=== PATIENT | male | born 1940 | race Caucasian/White ===

== ENCOUNTER 2018-04-20 11:11 | Inpatient (IN) ==
[2018-04-20] MEDS ORDERED: IOPAMIDOL 100 ML BOTTLE IV ONE (11:12)
[2018-04-20] MEDS ORDERED: cefTRIAXone 1 GM VIAL IV ONE (11:22)
[2018-04-20] MEDS ORDERED: VANCOMYCIN PER PHARMACY IV ONE ×2 (12:02→13:41)
[2018-04-20 12:24] LABS: Basophils # (Auto) 0 K/mcL (0.0-0.3); Basophils % (Auto) 0.3 % (0.0-2.0); Eosinophils # (Auto) 0 K/mcL (0.0-0.7); Eosinophils % (Auto) 0.7 % (0.0-7.0); Granulocytes % (Auto) 76.3 % (38.0-78.0); Lymphocytes % (Auto) 14.9 % (15.5-49.0); Mean Cell Volume 93.7 fL (80.0-100.0); Mean Corpuscular HGB Conc 33.5 g/dL (31.0-36.0); Monocytes # (Auto) 0.5 K/mcL (0.1-0.9); Monocytes % (Auto) 7.8 % (1.0-12.0); Platelet Count 339 K/mcL (140-440); RBC 4.99 M/mcL (4.50-5.90); Red Cell Distribution Width 12.4 % (11.5-14.5)
[2018-04-20 12:46] LABS: ALT/SGPT 36 U/l (0-40); Albumin/Globulin Ratio 0.6 (1.0-2.3); Alkaline Phosphatase 301 U/L (39-117); Blood Urea Nitrogen 17 mg/dl (8-23)
[2018-04-20] MEDS ORDERED: PIPERACILLIN SODIUM/TAZOBACTAM 3.375 GM in DEXTROSE 5% IN WATER 50 ML IV ONE (13:53)
--- NOTE | 2018-04-20 13:57 | Emergency Department Note ---
Lower Extremity Injury HPI - General Chief Complaint: Extremity Injury, Lower Stated Complaint: right foot problem Time Seen by Provider: 04/20/18 11:19 Source: patient Limitations: no limitations - History of Present Illness HPI Narrative: 78-year-old male presents with a cellulitis to the right lower extremity. He is a type 2 diabetes. No open wound but states he started out with some redness to the right ankle and has progressively gotten worse. He has been going to [place] outpatient IV antibiotic therapy. He is a patient of [facility] and sees Aden Cassidy. States he had x-rays done this morning. They have been continuing to monitor as it is getting worse instead of better. He has been receiving IV Rocephin 2 g daily for the last 5 days it appears. States he was sent here to see Dr. Ibarra with infectious disease due to worsening. Positive chills the last few days. Unknown fever. No nausea, vomiting, or diarrhea. He did have a venous duplex of the right lower extremity on the which was negative. Associated symptoms: Reports: swelling (Swelling and redness to the right lower extremity). Denies: numbness, tingling Other symptoms: none - Related Data Home Medications Medication Instructions Recorded Confirmed Aspirin [Hu Chewable Aspirin] 81 mg PO DAILY 04/20/18 04/20/18 Cephalexin [Keflex] 500 mg PO TID 04/20/18 04/20/18 Furosemide [Lasix] 20 mg PO DAILY 04/20/18 04/20/18 HYDROcodone/ACETAMINOPHEN [Xodol 5 mg PO 3-4XD 04/20/18 04/20/18 10-300 Tablet] Insulin Glargine, Human [Lantus] 85 units SQ HS 04/20/18 04/20/18 Lantus 95 units SQ DAILY 04/20/18 04/20/18 Losartan [Cozaar] 25 mg PO ONCE 04/20/18 04/20/18 Naproxen [Naprosyn] 500 mg PO BIDCC 04/20/18 04/20/18 Omeprazole [PriLOSEC] 20 mg PO ACB 04/20/18 04/20/18 Onglyza 5 mg DAILY 04/20/18 04/20/18 Potassium Chlorate 10 meq PO DAILY 04/20/18 04/20/18 Rosuvastatin [Crestor] 10 mg PO HS 04/20/18 04/20/18 Sulfamethoxazole/Trimethoprim 1 each PO BIDP 04/20/18 04/20/18 [Sulfamethoxazole-Tmp Ss Tablet] metFORMIN [Glucophage] 1,000 mg PO BIDCC 04/20/18 04/20/18 Allergies Allergy/AdvReac Type Severity Reaction Status Date / Time No Known Drug Allergies Allergy Verified 04/20/18 11:14 Review of Systems All systems ED: reviewed and negative except as stated. Past Medical History - Past Medical History Medical history: Reports: DM, other (Diabetic neuropathy, clubfoot right side, cellulitis, depression, chronic colitis, chronic low back pain, pedal edema, type 2 diabetes uncontrolled, noncompliance with medication, UTI) Surgical history ED: Reports: orthopedic, other (Multiple surgeries to the right foot and left ankle) - Social History smoking status: Never smoker Alcohol use: Reports: None Drug use: Reports: none Physical Exam Limitations: no limitations General appearance: alert, in no apparent distress Head: atraumatic, normocephalic, normal inspection Eye: Present: normal appearance. Absent: conjunctival injection ENT: mucous membranes moist Chest: Present: symmetric chest wall rise Respiratory: Present: normal lung sounds bilaterally. Absent: respiratory distress, rales/crackles, accessory muscle use Cardiovascular: Present: regular rate, normal heart sounds Extremities: Present: normal capillary refill. Absent: normal inspection (Right foot and ankle with diffuse edema, redness, and warmth. The skin is intact and there is no induration or drainage. No wound or site of drainage at all. Diffuse tenderness throughout. Redness extends up to mid calf. There is no posterior calf pain.) Neurological: Present: alert, oriented X3 Psychiatric: Present: normal affect, normal mood Skin: Present: warm, dry, intact, normal color, erythema (Please see extremity assessment) Course Course Narrative: Patient has been receiving 2 g IV Rocephin daily outpatient antibiotic therapy and has failed outpatient treatment. At 1400 I did speak with Dr. Ibarra who would suggest that we admit this patient through the hospitalist, he would like him on IV Vanco and IV Zosyn. Also concerned about further infection with uncontrolled diabetes. @ 1405 I did speak with the hospitalist, Dr. Best who will consult with Dr. Ibarra and see the patient to determine plan of care. @1450 Dr. Best agrees to admit pt. Vital Signs Temperature 97.0 F 04/20/18 11:12 Pulse Rate 87 04/20/18 11:12 Respiratory Rate 18 04/20/18 11:12 Blood Pressure 123/70 04/20/18 11:12 Pulse Oximetry (%) 99 04/20/18 11:12 Temperature 97.0 F 04/20/18 11:12 Pulse Rate 76 04/20/18 14:21 Respiratory Rate 18 04/20/18 14:21 Blood Pressure 118/68 04/20/18 14:21 Pulse Oximetry (%) 98 04/20/18 14:21 Extremity Injury, Lower - Lab Data Result diagrams: 04/20/18 11:37 04/20/18 11:37 Lab Results 04/20/18 04/20/18 04/20/18 Range/Units 11:37 11:37 11:37 WBC 6.7 (4.5-11.0) K/mcL RBC 4.99 (4.50-5.90) M/mcL Hgb 15.6 (13.5-16.5) g/dL Hct 46.7 (41.0-55.0) % MCV 93.7 (80.0-100.0) fL MCH 31.4 (26.0-34.0) pg MCHC 33.5 (31.0-36.0) g/dL RDW 12.4 (11.5-14.5) % Plt Count 339 (140-440) K/mcL MPV 8.4 (7.4-10.4) fL Gran % 76.3 (38.0-78.0) % Lymph % (Auto) 14.9 L (15.5-49.0) % [place] % (Auto) 7.8 (1.0-12.0) % Eos % (Auto) 0.7 (0.0-7.0) % Baso % (Auto) 0.3 (0.0-2.0) % Gran # 5.1 (1.8-8.0) K/mcL Lymph # (Auto) 1.0 L (1.5-4.8) K/mcL [place] # (Auto) 0.5 (0.1-0.9) K/mcL Eos # (Auto) 0 (0.0-0.7) K/mcL Baso # (Auto) 0 (0.0-0.3) K/mcL VBG Lactic Acid 2.6 H (0.5-2.0) mmol/L Sodium 133 (133-145) mmol/L Potassium 3.5 (3.3-5.1) mmol/L Chloride 93 L (96-108) mmol/L Carbon Dioxide 24 (22-30) mmol/L Anion Gap 16.0 (8-16) BUN 17 (8-23) mg/dl Creatinine 1.0 (0.7-1.2) mg/dl GFR Calculation 73 Glucose 353 H (70-105) mg/dL Calcium 8.9 (8.6-10.4) mg/dl Total Bilirubin 1.3 H (0.0-1.0) mg/dL AST 35 (0-37) U/l ALT 36 (0-40) U/l Alkaline Phosphatase 301 H (39-117) U/L Total Protein 7.9 (5.9-8.4) gm/dL Albumin 3.0 L (3.2-5.2) gm/dL Globulin 4.9 H (2.2-3.7) gm/dL Albumin/Globulin Ratio 0.6 L (1.0-2.3) Disposition Pt seen by SIMULATION TECH/PA only: No Clinical Impression: Cellulitis of lower extremity, Failure of outpatient treatment, Diabetes Disposition: Xfer As Inpt ([facility]) Condition: Fair Referrals: Aden Cassidy ARNP [Primary Care Provider] - Time of Disposition: 14:54
[2018-04-20] MEDS ORDERED: VANCOMYCIN 1,500 MG in 0.9 % SODIUM CHLORIDE 500 ML IV SCH (14:30)
[2018-04-20] MEDS ORDERED: DEXTROSE 50% 50 ML VIAL IV PRN ×2 (14:51→17:02)
[2018-04-20] MEDS ORDERED: DEXTROSE 31 GM ORAL.SUSP PO PRN ×2 (14:51→17:02)
--- NOTE | 2018-04-20 14:59 | Emergency Department Note ---
ED Note Addendum Note Addendum: I examined this patient and agree with the mid-level provider that he needs to be admitted for cellulitis.
--- NOTE | 2018-04-20 15:02 | Cat Scan Report ---
CLINICAL INFORMATION: severe cellulitis, edema COMPARISON: None. TECHNIQUE: 0.625 mm helical slices were obtained from the distal one third of the tibia and fibula through the foot and ankle. Following reconstruction, 1.25 mm axial, sagittal coronal reformatted images were processed and reviewed in bone and soft tissue windows FINDINGS: Bone windows show moderate/severe diffuse osteoporosis particularly in the periarticular region. There is no specific evidence for osteomyelitis. Severe hammertoe deformities first and fifth digit is noted. There is moderate moderate degenerative change in all interphalangeal joints. Diffuse cellulitis and fasciitis present throughout the foot and ankle. There is no evidence of discrete soft tissue abscess. There is extremely heavy ossification of the proximal Achilles tendon - likely stigmata of inflammation or old trauma. Other tendon sheaths are grossly normal IMPRESSION: 1. No CT evidence of osteomyelitis 2. Moderate diffuse cellulitis/fasciitis. No evidence of soft tissue abscess 3. Moderate/severe diffuse osteoporosis. 4. Hammertoe deformities first through fifth digits, pes cavus and metatarsus adductus deformities. 5. Heavy ossification of the proximal Achilles tendon likely stigmata of remote trauma or inflammation. Interpreted and Authenticated by: Primitivo Roman 04/20/18
--- NOTE | 2018-04-20 15:20 | Internal Med History&Physical ---
Medical - H&P: HPI Patient information: Note initiated : 04/20/18 at 3:16 pm Service Date, if different from initiated Date: [] Patient: Marvin Reddy a 78 y/o M admitted on for right foot problem. Chief Complaint: [] History of present illness: Mr. Reddy is a 78 year old M with history of uncontrolled diabetes presents to the emergency room for evaluation of right foot pain. The foot pain has been going on since last Thursday, started out of nowhere no trauma associated with redness and increased warmth in the right lower extremity. The patient was finding it difficult to ambulate and therefore he presented to [facility] emergency room for further evaluation I believe on 15 April. The pat ient was evaluated and started on antibiotics. He had received a dose of Rocephin and then put on p.o. Keflex. On subsequent visits on the it was noted that although the edema was better the cellulitis had not improved, Bactrim was added at that time. For some reason the patient presented to the hospital here today I believe for evaluation by infectious disease. The patient's condition has progressively gotten worse but it is not improved patient is unable to ambulate according to the daughters. Patient admits to having some chills but otherwise no other complaints. He denies any chest pain shortness of breath abdominal pain nausea vomiting no GI or complaints no headache changes in vision no difficulty in swallowing. He denies absolutely any trauma to the region. In the emergency room patient is afebrile temperature 97 heart rate 87 blood pressure 123/70 respirations 18 saturating 99% on room air labs show WBC count of 9.8, was 15,000 on 15 April, hemoglobin 15 platelets 263 lactic acid 2.7 sodium 133 potassium 3.5 bicarbonate 24 creatinine normal glucose 353 ABG shows pH of 7.46 PCO2 34 PO2 [address] scan done shows severe cellulitis and fasciitis no osteomyelitis The patient is being admitted to the hospital for further management All systems: reviewed and no additional remarkable complaints except as stated (As per HPI rest negative) Medical - H&P: PMH Medical history: Diabetes uncontrolled Diabetic neuropathy Hypertension Hyperlipidemia Peripheral vascular disease Surgical history: Clubfeet surgery Cholecystectomy Left knee replacement Pertinent family history: Mother from breast cancer Father from alcoholic cirrhosis Social history: Patient denies smoking denies ever smoking History of alcohol use quit 20 years ago Weekend use of marijuana Medical - H&P: Meds Home Medications Medication Instructions Recorded Confirmed Type Aspirin [Hu Chewable Aspirin] 81 mg PO DAILY 04/20/18 04/20/18 History Cephalexin [Keflex] 500 mg PO TID 04/20/18 04/20/18 History Furosemide [Lasix] 20 mg PO DAILY 04/20/18 04/20/18 History HYDROcodone/ACETAMINOPHEN [Xodol 5 mg PO 3-4XD 04/20/18 04/20/18 History 10-300 Tablet] Insulin Glargine, Human [Lantus] 85 units SQ HS 04/20/18 04/20/18 History Lantus 95 units SQ DAILY 04/20/18 04/20/18 History Losartan [Cozaar] 25 mg PO ONCE 04/20/18 04/20/18 History Naproxen [Naprosyn] 500 mg PO BIDCC 04/20/18 04/20/18 History Omeprazole [PriLOSEC] 20 mg PO ACB 04/20/18 04/20/18 History Onglyza 5 mg DAILY 04/20/18 04/20/18 History Potassium Chlorate 10 meq PO DAILY 04/20/18 04/20/18 History Rosuvastatin [Crestor] 10 mg PO HS 04/20/18 04/20/18 History Sulfamethoxazole/Trimethoprim 1 each PO BIDP 04/20/18 04/20/18 History [Sulfamethoxazole-Tmp Ss Tablet] metFORMIN [Glucophage] 1,000 mg PO BIDCC 04/20/18 04/20/18 History Allergies Allergy/AdvReac Type Severity Reaction Status Date / Time No Known Drug Allergies Allergy Verified 04/20/18 11:14 Medical - H&P: Exam - Constitutional Vitals: Temp Pulse Resp BP Pulse Ox 97.0 F 76 18 118/68 98 04/20/18 11:12 04/20/18 14:21 04/20/18 14:21 04/20/18 14:21 04/20/18 14:21 Exam: GENERAL: The patient is a well-developed, well-nourished in no apparent di stress. Is alert and oriented x3. VITAL SIGNS: Reviewed and as noted elsewhere. HEENT: Head is normocephalic and atraumatic. Extraocular muscles are intact. Pupils are equal, round, and reactive to light. Nares appeared normal. Mouth appears any without lesions. Mucous membranes are moist. NECK: Normal to inspection, Supple, No lymphadenopathy or thyromegaly. LUNGS: Air entry equal on both sides, no wheezing, crackles or rhonchi noted. No accessory muscles of respiration HEART: Regular rate and rhythm normal, S1 and S2 heard, no Gallop, S3 or Rub Noted, No Gross murmur heard. ABDOMEN: Soft, nontender, and nondistended. Positive bowel sounds. No hepatosplenomegaly was noted. EXTREMITIES: Right lower extremity has erythema extending from the ankle to the knee. Warm to touch tender to palpate around the ankle region as well as the lower part of the leg. Pulses are diminished in both legs. No crepitus noted NEUROLOGIC: Cranial nerves II through XII are grossly intact. Motor and Sensory System Grossly Intact PSYCHIATRIC: Normal affect, Normal Mood. Appropriate Behavior. SKIN: No ulceration or wounds noted, No jaundice, No rash noted. Medical - H&P: Reslt - Labs CBC & Chem 7: 04/20/18 11:37 04/20/18 11:37 Labs: Short CBC 04/20/18 Range/Units 11:37 WBC 6.7 (4.5-11.0) K/mcL Hgb 15.6 (13.5-16.5) g/dL Hct 46.7 (41.0-55.0) % Plt Count 339 (140-440) K/mcL BMP 04/20/18 11:37 Sodium 133 Potassium 3.5 Chloride 93 L Carbon Dioxide 24 BUN 17 Creatinine 1.0 Glucose 353 H Calcium 8.9 Liver Function 04/20/18 Range/Units 11:37 Total Bilirubin 1.3 H (0.0-1.0) mg/dL AST 35 (0-37) U/l ALT 36 (0-40) U/l Alkaline Phosphatase 301 H (39-117) U/L Albumin 3.0 L (3.2-5.2) gm/dL Medical - H&P: A/P - Narrative A/P Narrative: A/P Cellulitis/Fascitis- Failed outpatient treatment, start the patient on IV vancomycin and Zosyn for now. Given fascitis interpretation on the CT scan we will consult general surgery. Clinically patient is hemodynamically stable. Lactic acidosis-could be from cellulitis but patient is also on metformin. IV fluids for now monitor. Diabetes-uncontrolled diabetes looking at his labs in the past sugar has been very high, Lantus and sliding scale insulin for glucose control Hypertension/ hyperlipidemia: Hold blood pressure medications for now, continue statin Peripheral vascular disease-continue aspirin Diabetic neuropathy-continue Neurontin DVT prophylaxis-heparin subcu Consistent diet Patient wishes to be full code Plan of care reviewed with the patient and the daughter
[2018-04-20] MEDS ORDERED: INSULIN LISPRO 1 UNIT/0.01 ML UNIT SQ SCH (17:00)
[2018-04-20] MEDS ORDERED: ONDANSETRON 4 MG/2 ML VIAL IV PRN (17:02)
[2018-04-20] MEDS ORDERED: ALBUTEROL SULFATE 2.5 MG/3 ML NEBULIZER NEB PRN (17:02)
[2018-04-20] MEDS ORDERED: NALOXONE HCL 0.4 MG/ML VIAL IV PRN (17:02)
[2018-04-20] MEDS ORDERED: HYDROmorphone 2 MG/ML VIAL IV PRN (17:02)
--- NOTE | 2018-04-20 17:05 | General Surgery Consult Note ---
History of Present Illness Patient information: Note initiated : 04/20/18 at 5:03 pm Service Date, if different from initiated Date: [] Patient: Marvin Reddy 78 y/o M admitted on 04/20/18 for right foot problem. Chief Complaint: [] Reason for consult: other (cellulitis right foot and leg) Requesting physician: Belen Best History of present illness: 78-year-old male was a noncompliant diabetic who presents with extensive cellulitis of right foot and leg. The patient has painful, reddened right foot and leg. Since April 24. He was seen in the emergency room at [facility] on 15 April and was treated with IM injection and started on Keflex. He did not improve and was seen again on 18 April when he was treated with Bactrim in addition to the Keflex. The symptoms worsened and he sought attention in our facility because of the presence of infectious disease. He complained of chills but no major fever, sweats. He was having difficulty ambulating. His white blood count had decreased from 17,000-[address] of the extremity showed extensive cellulitis with edema of the subcutaneous fat but no abscess and no fasciitis. Patient states that he is able to flex his foot better today than the last 2 days. He is presently receiving vancomycin and Zosyn and appears to be having a clinical response. Past History Past medical history: Diabetes mellitus, uncontrolled. Peripheral neuropathy due to diabetes Hypertension History of peripheral vascular disease, not confirmed Past surgical history: Bilateral club foot surgery. Cholecystectomy. Left total knee arthroplasty Past family history: Liver failure. Breast cancer in mother Past social history: Former alcohol use. Presently uses marijuana regularly. Denies ever using tobacco Medications and Allergies Home Medications Medication Instructions Recorded Confirmed Type Aspirin [Hu Chewable Aspirin] 81 mg PO DAILY 04/20/18 04/20/18 History Furosemide [Lasix] 20 mg PO DAILY 04/20/18 04/20/18 History HYDROcodone/ACETAMINOPHEN [Xodol 5 mg PO 3-4XD 04/20/18 04/20/18 History 10-300 Tablet] Insulin Glargine, Human [Lantus] 85 units SQ HS 04/20/18 04/20/18 History Insulin Glargine, Human [Lantus] 85 units SQ HS 04/20/18 04/20/18 History Losartan [Cozaar] 25 mg PO DAILY 04/20/18 04/20/18 History Multivit-Min/Iron/Folic Acid/K 1 tab PO DAILY 04/20/18 04/20/18 History [Adults Multivitamin Tablet] Naproxen [Naprosyn] 500 mg PO BIDCC 04/20/18 04/20/18 History Omeprazole [Prilosec] 20 mg PO ACB 04/20/18 04/20/18 History Potassium Chloride [Klor-Con 10] 10 meq PO DAILY 04/20/18 04/20/18 History Rosuvastatin [Crestor] 10 mg PO HS 04/20/18 04/20/18 History Saxagliptin HCl [Onglyza] 5 mg PO DAILY 04/20/18 04/20/18 History metFORMIN [Glucophage] 1,000 mg PO BIDCC 04/20/18 04/20/18 History Amoxicillin/Potassium Clav 875 mg PO Q12H #10 tab 04/23/18 Rx [Augmentin] Lactobacillus [Culturelle] 1 cap PO BID #60 cap 04/23/18 Rx Allergies Allergy/AdvReac Type Severity Reaction Status Date / Time No Known Drug Allergies Allergy Verified 04/20/18 11:14 Exam Temp Pulse Resp BP Pulse Ox 97.0 F 73 18 139/76 98 04/20/18 11:12 04/20/18 16:17 04/20/18 16:17 04/20/18 16:17 04/20/18 16:17 - General physical appearance well developed, well nourished, no distress - Eyes PERRL, normal ocular movement - ENT normal pinna, normal nares, normal mucosa, no hearing loss, no congestion - Head Head exam IM: Present: atraumatic, normocephalic - Neck no masses, no bruits, trachea midline, no lymphadenopathy, no venous distension - Cardiovascular Cardiovascular exam IM: Present: normal rate and rhythm - Respiratory normal expansion, normal respiratory effort, clear to percussion, clear to auscultation - Abdomen Abdomen: Present: soft, non tender, bowel sounds Hernia: Present: none - Integumentary Present: no growths, other (severe extensive cellulitis of right lower extremity; much more involved in the foot and ankle, but extending to the knee; there is some initial improvement with decreased edema in the upper leg. Hyperesthesia extends up to an area immediately below the knee; dorsiflexion of the foot is preserved, though it is more difficult; no evidence of fluctuance and no findings suggestive of subcutaneous necrosis) - Neurologic Present: normal coordination, normal sensation - Musculoskeletal Present: other (gait and stance are not tested; operative changes of both feet, which are healed) - Psychiatric Present: oriented to time, oriented to person, oriented to place, speech is normal, memory intact Results - Labs 04/22/18 04:49 04/23/18 04:40 Abnormal lab results 04/20/18 04/20/18 04/20/18 Range/Units 11:37 11:37 11:37 Lymph % (Auto) 14.9 L (15.5-49.0) % Lymph # (Auto) 1.0 L (1.5-4.8) K/mcL VBG Lactic Acid 2.6 H (0.5-2.0) mmol/L Chloride 93 L (96-108) mmol/L Glucose 353 H (70-105) mg/dL Total Bilirubin 1.3 H (0.0-1.0) mg/dL Alkaline Phosphatase 301 H (39-117) U/L Albumin 3.0 L (3.2-5.2) gm/dL Globulin 4.9 H (2.2-3.7) gm/dL Albumin/Globulin Ratio 0.6 L (1.0-2.3) Diabetes panel 04/20/18 Range/Units 11:37 Sodium 133 (133-145) mmol/L Potassium 3.5 (3.3-5.1) mmol/L Chloride 93 L (96-108) mmol/L Carbon Dioxide 24 (22-30) mmol/L BUN 17 (8-23) mg/dl Creatinine 1.0 (0.7-1.2) mg/dl Glucose 353 H (70-105) mg/dL Calcium 8.9 (8.6-10.4) mg/dl AST 35 (0-37) U/l ALT 36 (0-40) U/l Alkaline Phosphatase 301 H (39-117) U/L Total Protein 7.9 (5.9-8.4) gm/dL Albumin 3.0 L (3.2-5.2) gm/dL Calcium panel 04/20/18 Range/Units 11:37 Calcium 8.9 (8.6-10.4) mg/dl Albumin 3.0 L (3.2-5.2) gm/dL Pituitary panel 04/20/18 Range/Units 11:37 Sodium 133 (133-145) mmol/L Potassium 3.5 (3.3-5.1) mmol/L Chloride 93 L (96-108) mmol/L Carbon Dioxide 24 (22-30) mmol/L BUN 17 (8-23) mg/dl Creatinine 1.0 (0.7-1.2) mg/dl Glucose 353 H (70-105) mg/dL Calcium 8.9 (8.6-10.4) mg/dl Adrenal panel 04/20/18 Range/Units 11:37 Sodium 133 (133-145) mmol/L Potassium 3.5 (3.3-5.1) mmol/L Chloride 93 L (96-108) mmol/L Carbon Dioxide 24 (22-30) mmol/L BUN 17 (8-23) mg/dl Creatinine 1.0 (0.7-1.2) mg/dl Glucose 353 H (70-105) mg/dL Calcium 8.9 (8.6-10.4) mg/dl Total Bilirubin 1.3 H (0.0-1.0) mg/dL AST 35 (0-37) U/l ALT 36 (0-40) U/l Alkaline Phosphatase 301 H (39-117) U/L Total Protein 7.9 (5.9-8.4) gm/dL Albumin 3.0 L (3.2-5.2) gm/dL All other labs normal. Assessment and Plan (1) Cellulitis of lower extremity no indication for operative therapy at this time. will follow closely over next 48 hr; no evidence of drainable pus; he will probably respond to antibiotics alone without surgery. Status: Acute
[2018-04-20] MEDS: 0.9 % SODIUM CHLORIDE 1,000 ML IV SCH ×5 (17:39→22:17)
[2018-04-20] MEDS: INSULIN GLARGINE, HUMAN 1 UNIT/0.01 ML SQ SCH (21:12)
[2018-04-20] MEDS: oxyCODONE HCL 5 MG TABLET PO PRN (21:13)
[2018-04-20] MEDS: HEPARIN 5,000 UNIT/ML VIAL SQ SCH (21:13)
[2018-04-20] MEDS: INSULIN LISPRO 1 UNIT/0.01 ML UNIT SQ SCH (21:13)
[2018-04-20] MEDS: ACETAMINOPHEN 325 MG TABLET PO PRN (21:14)
[2018-04-20] MEDS: 0.9 % SODIUM CHLORIDE 10 ML SYRINGE IV SCH (21:14)
[2018-04-20] MEDS: SENNOSIDES 1 TABLET PO SCH (21:16)
[2018-04-21] MEDS: 0.9 % SODIUM CHLORIDE 10 ML SYRINGE IV SCH ×3 (04:31→23:38)
[2018-04-21] MEDS: ACETAMINOPHEN 325 MG TABLET PO PRN ×3 (04:32→21:39)
[2018-04-21] MEDS: oxyCODONE HCL 5 MG TABLET PO PRN ×4 (04:32→21:38)
[2018-04-21 05:37] LABS: Basophils # (Auto) 0 K/mcL (0.0-0.3); Basophils % (Auto) 0.6 % (0.0-2.0); Eosinophils # (Auto) 0.2 K/mcL (0.0-0.7); Eosinophils % (Auto) 4.4 % (0.0-7.0); Granulocytes % (Auto) 57.4 % (38.0-78.0); Lymphocytes # (Auto) 1.3 K/mcL (1.5-4.8); Lymphocytes % (Auto) 26.7 % (15.5-49.0); Mean Cell Volume 92.9 fL (80.0-100.0); Mean Corpuscular HGB Conc 33.7 g/dL (31.0-36.0); Monocytes # (Auto) 0.5 K/mcL (0.1-0.9); Monocytes % (Auto) 10.9 % (1.0-12.0); Platelet Count 312 K/mcL (140-440); RBC 4.41 M/mcL (4.50-5.90); Red Cell Distribution Width 12.6 % (11.5-14.5)
[2018-04-21 06:13] LABS: ALT/SGPT 25 U/l (0-40); Albumin 2.3 gm/dL (3.2-5.2); Albumin/Globulin Ratio 0.5 (1.0-2.3); Alkaline Phosphatase 234 U/L (39-117); Bilirubin,Direct 0.3 mg/dL (0.0-0.3); Blood Urea Nitrogen 7 mg/dl (8-23); Gamma Glutamyl Transpeptidase 128 U/L (8-61); Uric Acid 3.7 mg/dL (2.5-8.0)
[2018-04-21] MEDS: INSULIN LISPRO 1 UNIT/0.01 ML UNIT SQ SCH ×4 (09:28→20:43)
[2018-04-21] MEDS: HEPARIN 5,000 UNIT/ML VIAL SQ SCH ×2 (09:28→20:41)
[2018-04-21] MEDS: VANCOMYCIN 1,500 MG in 0.9 % SODIUM CHLORIDE 500 ML IV SCH (09:28)
[2018-04-21] MEDS: INSULIN GLARGINE, HUMAN 1 UNIT/0.01 ML SQ SCH (09:29)
[2018-04-21] MEDS: PIPERACILLIN SODIUM/TAZOBACTAM 3.375 GM in DEXTROSE 5% IN WATER 50 ML IV SCH ×4 (09:29→23:38)
[2018-04-21] MEDS: POTASSIUM CHLORIDE 10 MEQ TABLET PO SCH (13:16)
--- NOTE | 2018-04-21 13:44 | General Surgery Progress Note ---
Subjective Patient reports: feels better, pain is less, afebrile Narrative: Note initiated : 04/21/18 at 1:44 pm Service Date, if different from initiated Date: [] Patient: Marvin Reddy 78 y/o M admitted on 04/20/18 for right foot problem. Chief Complaint: [patient is doing much better than on yesterday. There is significant reduction in edema, erythema, and is induration of the left lower extremity. The entire leg is much softer.. There are no fluctuant areas.. She has much less hyperesthesia than he had on yesterday and he is able to flex his foot better than yesterday.] Objective Temp Pulse Resp BP Pulse Ox 97.6 F 75 18 130/77 97 04/21/18 12:00 04/21/18 12:00 04/21/18 12:00 04/21/18 12:00 04/21/18 12:00 - Additional Data Intake & Output - Last 24 hours: Intake & Output 04/19/18 04/20/18 04/21/18 04/22/18 05:59 05:59 05:59 05:59 Intake Total 3650 / 3650 410 / 410 Output Total 2126 / 2126 400 / 400 Balance 1524 / 1524 10 Weight 196 lb 196 lb - General physical appearance well developed, well nourished, no distress - Eyes PERRL, normal ocular movement - ENT normal pinna, normal nares, normal mucosa, no congestion, decreased hearing - Neck no masses, no bruits, trachea midline, no lymphadenopathy, no venous distension - Respiratory normal expansion, normal respiratory effort, clear to auscultation - Cardiovascular Cardiovascular exam: Present: normal rate and rhythm, RRR, +S1, +S2. Absent: JVD, tachycardia - Abdomen non tender, bowel sounds (present), surgical scars (none), masses (none) - Integumentary other (cellulitis of right lower extremity is significantly improved compared to yesterday) - Psychiatric oriented to time, oriented to person, oriented to place, speech is normal, memory intact - Labs 04/21/18 04:27 04/21/18 04:27 Diabetes panel 04/21/18 Range/Units 04:27 Sodium 137 (133-145) mmol/L Potassium 3.3 (3.3-5.1) mmol/L Chloride 104 (96-108) mmol/L Carbon Dioxide 21 L (22-30) mmol/L BUN 7 L (8-23) mg/dl Creatinine 0.6 L (0.7-1.2) mg/dl Glucose 186 H (70-105) mg/dL Calcium 7.8 L (8.6-10.4) mg/dl AST 25 (0-37) U/l ALT 25 (0-40) U/l Alkaline Phosphatase 234 H (39-117) U/L Total Protein 6.6 (5.9-8.4) gm/dL Albumin 2.3 L (3.2-5.2) gm/dL Triglycerides 111 (<150) mg/dl Calcium panel 04/21/18 Range/Units 04:27 Calcium 7.8 L (8.6-10.4) mg/dl Phosphorus 2.8 (2.7-4.5) mg/dL Albumin 2.3 L (3.2-5.2) gm/dL Pituitary panel 04/21/18 Range/Units 04:27 Sodium 137 (133-145) mmol/L Potassium 3.3 (3.3-5.1) mmol/L Chloride 104 (96-108) mmol/L Carbon Dioxide 21 L (22-30) mmol/L BUN 7 L (8-23) mg/dl Creatinine 0.6 L (0.7-1.2) mg/dl Glucose 186 H (70-105) mg/dL Calcium 7.8 L (8.6-10.4) mg/dl Adrenal panel 04/21/18 Range/Units 04:27 Sodium 137 (133-145) mmol/L Potassium 3.3 (3.3-5.1) mmol/L Chloride 104 (96-108) mmol/L Carbon Dioxide 21 L (22-30) mmol/L BUN 7 L (8-23) mg/dl Creatinine 0.6 L (0.7-1.2) mg/dl Glucose 186 H (70-105) mg/dL Calcium 7.8 L (8.6-10.4) mg/dl Total Bilirubin 1.0 (0.0-1.0) mg/dL AST 25 (0-37) U/l ALT 25 (0-40) U/l Alkaline Phosphatase 234 H (39-117) U/L Total Protein 6.6 (5.9-8.4) gm/dL Albumin 2.3 L (3.2-5.2) gm/dL Assessment and Plan (1) Cellulitis of lower extremity Status: Acute Assessment and plan: patient is showing excellent clinical improvement on present antibioticsand should not need any type of operative intervention. I will follow him up for another 2 days to make sure that this progress continues Current Visit: Yes - Time Spent With Patient Total time spent is greater than 50% in coordination of care (as documented) at patient's floor/unit and/or counseling patient:
--- NOTE | 2018-04-21 14:32 | Internal Med Progress Note ---
Medical - PN: Subj Patient information: Note initiated : 04/21/18 at 2:30 pm Service Date, if different from initiated Date: [] Patient: Marvin Reddy a 78 y/o M admitted on 04/20/18 for right foot problem. Chief Complaint: [] Interval history: Mr. Reddy is a 78 year old M with history of uncontrolled diabetes presents to the emergency room for evaluation of right foot pain. The foot pain has been going on since last Thursday, started out of nowhere no trauma associated with redness and increased warmth in the right lower extremity. The patient was finding it difficult to ambulate and therefore he presented to [facility] emergency room for further evaluation I believe on 15 April. The patient was evaluated and started on antibiotics. He had received a dose of Rocephin and then put on p.o. Keflex. On subsequent visits on the it was noted that although the edema was better the cellulitis had not improved, Bactrim was added at that time. For some reason the patient presented to the hospital here today I believe for evaluation by infectious disease. The patient's condition has progressively gotten worse but it is not improved patient is unable to ambulate according to the daughters. Patient admits to having some chills but otherwise no other complaints. He denies any chest pain shortness of breath abdominal pain nausea vomiting no GI or complaints no headache changes in vision no difficulty in swallowing. He denies absolutely any trauma to the region. In the emergency room patient is afebrile temperature 97 heart rate 87 blood pressure 123/70 respirations 18 saturating 99% on room air labs show WBC count of 9.8, was 15,000 on 15 April, hemoglobin 15 platelets 263 lactic acid 2.7 sodium 133 potassium 3.5 bicarbonate 24 creatinine normal glucose 353 ABG shows pH of 7.46 PCO2 34 PO2 [address] scan done shows severe cellulitis and fasciitis no osteomyelitis The patient is being admitted to the hospital for further management 04/21 Pt seen examined, no acute overnight issues, no new complaints or concerns pain still there, but no increased erythema. labs stable Pertinent ROS: Denies headache, dizziness Denies chest pain, palpitations Denies cough or shortness of breath Denies abdominal pain, nausea or vomiting. - Constitutional Vitals: Vital Signs Temp Pulse Resp BP Pulse Ox 97.6 F 75 18 130/77 97 01/16/19 12:00 04/21/18 12:00 04/21/18 12:00 04/21/18 12:00 04/21/18 12:00 Period Temp Pulse Resp BP Sys/Jauregui Pulse Ox Last 24 Hr 97.4 F-98.2 F 68-79 18-20 126-146/63-81 92-98 Intake and Output 04/21/18 04/21/18 04/21/18 05:59 13:59 21:59 Intake Total 1500 / 3650 700 / 700 Output Total 1575 / 2126 1000 / 1000 Balance -75 / 1524 -300 / -300 Weight 196 lb Patient Weight 04/22/18 05:59 Weight 196 lb Intake & Output: Intake & Output 04/21/18 04/21/18 04/21/18 05:59 13:59 21:59 Intake Total 1500 / 3650 700 / 700 Output Total 1575 / 2126 1000 / 1000 Balance -75 / 1524 -300 / -300 Weight 196 lb Intake: IV 1000 / 2550 100 / 100 Zosyn 3.375 gm In Dextrose 5% 100 / 100 in Water 50 ml @ 100 mls/hr IV Q6H [facility] Rx#:[id number] Oral 500 / 1100 600 / 600 Output: Void Amount 1575 / 2125 1000 / 1000 Other: Meal Lunch Percent of Meal Consumed 50% Feeding Ability Independent Urine Appearance Clear Urine Color Pale Urine Odor Normal Exam: Constitutional; Afebrile, cooperative, alert, not in distress. Respiratory system: Air Entry equal on both sides, No crackles or wheezing, no r honchi. CVS- Rate rhythm regular, S1,S2 heard, no gallop, no rub. Abdomen- Soft nontender abdomen, no organomegaly, no tenderness, no guarding or rigidity, [employer]ER- AOOx3, moving all extremities, no gross focal deficit noted. Medical - PN: Obj Da - Labs CBC & Chem 7: 04/21/18 04:27 04/21/18 04:27 Labs: Abnormal Lab Results 04/21/18 04/21/18 04/20/18 04:27 04:27 11:37 RBC 4.41 L Lymph % (Auto) Lymph # (Auto) 1.3 L VBG Lactic Acid 2.6 H Chloride Carbon Dioxide 21 L BUN 7 L Creatinine 0.6 L Glucose 186 H Calcium 7.8 L Total Bilirubin GGT 128 H Alkaline Phosphatase 234 H Albumin 2.3 L Globulin 4.3 H Albumin/Globulin Ratio 0.5 L 04/20/18 04/20/18 11:37 11:37 RBC Lymph % (Auto) 14.9 L Lymph # (Auto) 1.0 L VBG Lactic Acid Chloride 93 L Carbon Dioxide BUN Creatinine Glucose 353 H Calcium Total Bilirubin 1.3 H GGT Alkaline Phosphatase 301 H Albumin 3.0 L Globulin 4.9 H Albumin/Globulin Ratio 0.6 L Meds: Medications Acetaminophen (Tylenol) 650 mg PO Q6HP PRN PRN Reason: PAIN/FEVER > 101 Last Admin: 04/21/18 09:30 Dose: 650 mg Documented by: Albuterol Sulfate (Ventolin) 2.5 mg NEB Q2HP PRN PRN Reason: Shortness Of Breath Aspirin (Aspirin) 81 mg PO DAILY [facility] Atorvastatin Calcium (Lipitor) 20 mg PO HS [facility] Dextrose (Dextrose 50%) 0 ml IV UD PRN PRN Reason: Hypoglycemia Diagnostic Test (Pha) (Accu-Chek) 1 each FS ACHS [facility] Last Admin: 04/21/18 11:25 Dose: 1 each Documented by: Furosemide (Lasix) 20 mg PO DAILY [facility] Glucose (Insta-Glucose) 15 gm PO PRN PRN PRN Reason: Hypoglycemia Heparin Sodium (Porcine) (Heparin) 5,000 unit SQ Q12 [facility] Last Admin: 04/21/18 09:28 Dose: Not Given Documented by: Hydromorphone HCl (Dilaudid) 0.5 mg IV Q2HP PRN PRN Reason: pain not responding to oxycodo Vancomycin HCl 1,500 mg/ (Sodium Chloride) 500 mls @ 333.3 mls/hr IV Q24H [facility] Last Admin: 04/21/18 09:28 Dose: 333.3 mls/hr Documented by: Piperacillin Sod/Tazobactam (Sod 3.375 gm/ Dextrose) 50 mls @ 100 mls/hr IV Q6H [facility] Last Infusion: 04/21/18 13:52 Dose: Infused Documented by: Insulin Glargine (Lantus) 85 unit SQ HS [facility] Insulin Glargine (Lantus) 60 unit SQ ONCE@2100 ONE Stop: 04/21/18 21:01 Insulin Human Lispro (Humalog) 0 unit SQ [facility]; Protocol Last Admin: 04/21/18 13:17 Dose: 4 units Documented by: Iron Carb/Multivit/[place]/Folic Acid (Multivitamin W/Minerals) 1 tab PO DAILY [facility] Losartan Potassium (Cozaar) 25 mg PO DAILY [facility] Naloxone HCl (Narcan) 0.1 mg IV Q2MIN PRN PRN Reason: Opiate Reversal Omeprazole (Prilosec) 20 mg PO ACB [facility] Ondansetron HCl (Zofran) 4 mg IV Q6HP PRN PRN Reason: Nausea And Vomiting Oxycodone HCl (Roxicodone) 5 mg PO Q4HP PRN PRN Reason: pain not responding to apap Last Admin: 04/21/18 13:17 Dose: 5 mg Documented by: Potassium Chloride (Kdur) 10 meq PO QAMCC [facility] Last Admin: 04/21/18 13:16 Dose: 10 meq Documented by: Senna (Senokot) 2 tab PO HS [facility] Last Admin: 04/20/18 21:16 Dose: 2 tab Documented by: Sodium Chloride (Saline Flush) 10 ml IV Q8 [facility] Last Admin: 04/21/18 13:46 Dose: 10 ml Documented by: Medical - PN: A/P - Time Spent With Patient Total time spent is greater than 50% in coordination of care (as documented) at patient's floor/unit and/or counseling patient: - Narrative A/P Narrative: A/P Cellulitis/Fascitis- Failed outpatient treatment, start the patient on IV vancomycin and Zosyn for now. Pt remains stable and improving, appreciate surgery input. Lactic acidosis-resolved. Diabetes-uncontrolled diabetes looking at his labs in the past sugar has been very high, start Lantus and sliding scale insulin for glucose control Hypertension/ hyperlipidemia: Hold blood pressure medications for now, continue statin, resume bp meds once bp is stable x 24 hrs Peripheral vascular disease-continue aspirin Diabetic neuropathy-continue Neurontin DVT prophylaxis-heparin subcu Consistent diet Patient wishes to be full code
--- NOTE | 2018-04-21 14:46 | Internal Med Progress Note ---
Medical - PN: Subj Patient information: Note initiated : 04/21/18 at 2:39 pm Service Date, if different from initiated Date: [] Patient: Marvin Reddy a 78 y/o M admitted on 04/20/18 for right foot problem. Chief Complaint: [] Interval history: Mr. Reddy is a 78 year old M with history of uncontrolled diabetes presents to the emergency room for evaluation of right foot pain. The foot pain has been going on since last Thursday, started out of nowhere no trauma associated with redness and increased warmth in the right lower extremity. The patient was finding it difficult to ambulate and therefore he presented to [facility] emergency room for further evaluation I believe on 15 April. The patient was evaluated and started on antibiotics. He had received a dose of Rocephin and then put on p.o. Keflex. On subsequent visits on the it was noted that although the edema was better the cellulitis had not improved, Bactrim was added at that time. For some reason the patient presented to the hospital here today I believe for evaluation by infectious disease. The patient's condition has progressively gotten worse but it is not improved patient is unable to ambulate according to the daughters. Patient admits to having some chills but otherwise no other complaints. He denies any chest pain shortness of breath abdominal pain nausea vomiting no GI or complaints no headache changes in vision no difficulty in swallowing. He denies absolutely any trauma to the region. In the emergency room patient is afebrile temperature 97 heart rate 87 blood pressure 123/70 respirations 18 saturating 99% on room air labs show WBC count of 9.8, was 15,000 on 15 April, hemoglobin 15 platelets 263 lactic acid 2.7 sodium 133 potassium 3.5 bicarbonate 24 creatinine normal glucose 353 ABG shows pH of 7.46 PCO2 34 PO2 [address] scan done shows severe cellulitis and fasciitis no osteomyelitis The patient is being admitted to the hospital for further management 04/21 Pt seen examined, no acute overnight issues, no new complaints or concerns pain still there, but no increased erythema. labs stable 04/22 - Constitutional Vitals: Vital Signs Temp Pulse Resp BP Pulse Ox 97.6 F 75 18 130/77 97 04/21/18 12:00 04/21/18 12:00 04/21/18 12:00 04/21/18 12:00 04/21/18 12:00 Period Temp Pulse Resp BP Sys/Jauregui Pulse Ox Last 24 Hr 97.4 F-98.2 F 68-79 18-20 126-146/63-81 92-98 Intake and Output 04/21/18 04/21/18 04/21/18 05:59 13:59 21:59 Intake Total 1500 / 3650 700 / 700 Output Total 1575 / 2126 1000 / 1000 Balance -75 / 1524 -300 / -300 Weight 88.904 kg Patient Weight 04/22/18 05:59 Weight 88.904 kg Intake & Output: Intake & Output 04/21/18 04/21/18 04/21/18 05:59 13:59 21:59 Intake Total 1500 / 3650 700 / 700 Output Total 1575 / 2126 1000 / 1000 Balance -75 / 1524 -300 / -300 Weight 88.904 kg Intake: IV 1000 / 2550 100 / 100 Zosyn 3.375 gm In Dextrose 5% 100 / 100 in Water 50 ml @ 100 mls/hr IV Q6H [facility] Rx#:[id number] Oral 500 / 1100 600 / 600 Output: Void Amount 1575 / 2125 1000 / 1000 Other: Meal Lunch Percent of Meal Consumed 50% Feeding Ability Independent Urine Appearance Clear Urine Color Pale Urine Odor Normal Exam: General: Alert, Awake, No acute Distress Eyes/N/T: EOMI, Head/Neck: neck supple, CV: RRR, No murmurs, Pulm: Clear b/l, no wheezing/rhonchi/rales Abd: soft, nontender, +BS x4 Ext: Neuro: Alert, no focal deficits, moves all extremities, Skin: warm/dry Medical - PN: Obj Da - Labs CBC & Chem 7: 04/21/18 04:27 04/21/18 04:27 Labs: Abnormal Lab Results 04/21/18 04/21/18 04/20/18 04:27 04:27 11:37 RBC 4.41 L Lymph % (Auto) Lymph # (Auto) 1.3 L VBG Lactic Acid 2.6 H Chloride Carbon Dioxide 21 L BUN 7 L Creatinine 0.6 L Glucose 186 H Calcium 7.8 L Total Bilirubin GGT 128 H Alkaline Phosphatase 234 H Albumin 2.3 L Globulin 4.3 H Albumin/Globulin Ratio 0.5 L 04/20/18 04/20/18 11:37 11:37 RBC Lymph % (Auto) 14.9 L Lymph # (Auto) 1.0 L VBG Lactic Acid Chloride 93 L Carbon Dioxide BUN Creatinine Glucose 353 H Calcium Total Bilirubin 1.3 H GGT Alkaline Phosphatase 301 H Albumin 3.0 L Globulin 4.9 H Albumin/Globulin Ratio 0.6 L Meds: Medications Acetaminophen (Tylenol) 650 mg PO Q6HP PRN PRN Reason: PAIN/FEVER > 101 Last Admin: 04/21/18 09:30 Dose: 650 mg Documented by: Albuterol Sulfate (Ventolin) 2.5 mg NEB Q2HP PRN PRN Reason: Shortness Of Breath Aspirin (Aspirin) 81 mg PO DAILY [facility] Atorvastatin Calcium (Lipitor) 20 mg PO HS [facility] Dextrose (Dextrose 50%) 0 ml IV UD PRN PRN Reason: Hypoglycemia Diagnostic Test (Pha) (Accu-Chek) 1 each FS [facility] Last Admin: 04/21/18 11:25 Dose: 1 each Documented by: Furosemide (Lasix) 20 mg PO DAILY [facility] Glucose (Insta-Glucose) 15 gm PO PRN PRN PRN Reason: Hypoglycemia Heparin Sodium (Porcine) (Heparin) 5,000 unit SQ Q12 [facility] Last Admin: 04/21/18 09:28 Dose: Not Given Documented by: Hydromorphone HCl (Dilaudid) 0.5 mg IV Q2HP PRN PRN Reason: pain not responding to oxycodo Vancomycin HCl 1,500 mg/ (Sodium Chloride) 500 mls @ 333.3 mls/hr IV Q24H [facility] Last Admin: 04/21/18 09:28 Dose: 333.3 mls/hr Documented by: Piperacillin Sod/Tazobactam (Sod 3.375 gm/ Dextrose) 50 mls @ 100 mls/hr IV Q6H [facility] Last Infusion: 04/21/18 13:52 Dose: Infused Documented by: Insulin Glargine (Lantus) 85 unit SQ HS [facility] Insulin Glargine (Lantus) 60 unit SQ ONCE@2100 ONE Stop: 04/21/18 21:01 Insulin Human Lispro (Humalog) 0 unit SQ [facility]; Protocol Last Admin: 04/21/18 13:17 Dose: 4 units Documented by: Iron Carb/Multivit/[employer] Teacher/Folic Acid (Multivitamin W/Minerals) 1 tab PO DAILY [facility] Losartan Potassium (Cozaar) 25 mg PO DAILY [facility] Naloxone HCl (Narcan) 0.1 mg IV Q2MIN PRN PRN Reason: Opiate Reversal Omeprazole (Prilosec) 20 mg PO ACB [facility] Ondansetron HCl (Zofran) 4 mg IV Q6HP PRN PRN Reason: Nausea And Vomiting Oxycodone HCl (Roxicodone) 5 mg PO Q4HP PRN PRN Reason: pain not responding to apap Last Admin: 04/21/18 13:17 Dose: 5 mg Documented by: Potassium Chloride (Kdur) 10 meq PO QAMCC [facility] Last Admin: 04/21/18 13:16 Dose: 10 meq Documented by: Senskyla (Senokot) 2 tab PO HS [facility] Last Admin: 04/20/18 21:16 Dose: 2 tab Documented by: Sodium Chloride (Saline Flush) 10 ml IV Q8 [facility] Last Admin: 04/21/18 13:46 Dose: 10 ml Documented by: Medical - PN: A/P - Time Spent With Patient Total time spent is greater than 50% in coordination of care (as documented) at patient's floor/unit and/or counseling patient: - Narrative A/P Narrative: A: *Cellulitis, Right foot: - Failed outpatient treatment -no Fascitis per surgical eval *Diabetes w/neuropathy: uncontrolled diabetes looking at his labs in the past sugar has been very high. on neurontin *Hypertension/ hyperlipidemia: *Peripheral vascular disease: continue aspirin *GERD P: -cont broad Abx -surgery following -start Lantus and sliding scale insulin for glucose control, metformin held for now -cont home blood pressure, continue statin, - -ppx: heparin/pepcid full code
[2018-04-21] MEDS: SENNOSIDES 1 TABLET PO SCH (20:40)
[2018-04-21] MEDS: ATORVASTATIN 20 MG TABLET PO SCH (20:41)
[2018-04-21] MEDS: FAMOTIDINE 20 MG TABLET PO SCH (20:41)
[2018-04-21] MEDS ORDERED: INSULIN GLARGINE, HUMAN 1 UNIT/0.01 ML SQ ONE (21:00)
[2018-04-22] MEDS ORDERED: INSULIN GLARGINE, HUMAN 1 UNIT/0.01 ML SQ ONE (05:43)
--- NOTE | 2018-04-22 05:44 | Internal Med Progress Note ---
Medical - PN: Subj Patient information: Note initiated : 04/22/18 at 5:38 am Service Date, if different from initiated Date: [] Patient: Marvin Reddy a 78 y/o M admitted on 04/20/18 for right foot problem. Chief Complaint: [] Interval history: Mr. Reddy is a 78 year old M with history of uncontrolled diabetes presents to the emergency room for evaluation of right foot pain. The foot pain has been going on since last Thursday, started out of nowhere no trauma associated with redness and increased warmth in the right lower extremity. The patient was finding it difficult to ambulate and therefore he presented to [facility] emergency room for further evaluation I believe on 15 April. The patient was evaluated and started on antibiotics. He had received a dose of Rocephin and then put on p.o. Keflex. On subsequent visits on the it was noted that although the edema was better the cellulitis had not improved, Bactrim was added at that time. For some reason the patient presented to the hospital here today I believe for evaluation by infectious disease. The patient's condition has progressively gotten worse but it is not improved patient is unable to ambulate according to the daughters. Patient admits to having some chills but otherwise no other complaints. He denies any chest pain shortness of breath abdominal pain nausea vomiting no GI or complaints no headache changes in vision no difficulty in swallowing. He denies absolutely any trauma to the region. In the emergency room patient is afebrile temperature 97 heart rate 87 blood pressure 123/70 respirations 18 saturating 99% on room air labs show WBC count of 9.8, was 15,000 on 15 April, hemoglobin 15 platelets 263 lactic acid 2.7 sodium 133 potassium 3.5 bicarbonate 24 creatinine normal glucose 353 ABG shows pH of 7.46 PCO2 34 PO2 [address] scan done shows severe cellulitis and fasciitis no osteomyelitis The patient is being admitted to the hospital for further management 04/21 Pt seen examined, no acute overnight issues, no new complaints or concerns pain still there, but no increased erythema. labs stable 04/22 No new complaints. blister packing machine tender in that right ankle. No overnight events. Review of Systems: denies headache/fever/chills/nausea/vomiting/chest or abdominal pain/cough/d yspnea/diarrhea. Otherwise see above. - Constitutional Vitals: Vital Signs Temp Pulse Resp BP Pulse Ox 98.7 F 74 18 129/66 95 04/22/18 03:42 04/22/18 03:42 04/22/18 03:42 04/22/18 03:42 04/22/18 03:42 Period Temp Pulse Resp BP Sys/Jauregui Pulse Ox Last 24 Hr 96.8 F-98.7 F 66-76 18-20 120-138/63-77 95-98 Intake and Output 04/21/18 04/21/18 04/22/18 13:59 21:59 05:59 Intake Total 700 / 1750 850 / 1750 200 / 1750 Output Total 1000 / 2300 500 / 2300 800 / 2300 Balance -300 / -550 350 / -550 -600 / -550 Weight 88.904 kg 88.904 kg Patient Weight 04/22/18 05:59 Weight 88.904 kg Intake & Output: Intake & Output 04/21/18 04/21/18 04/22/18 13:59 21:59 05:59 Intake Total 700 / 1750 850 / 1750 200 / 1750 Output Total 1000 / 2300 500 / 2300 800 / 2300 Balance -300 / -550 350 / -550 -600 / -550 Weight 88.904 kg 88.904 kg Intake: IV 100 / 150 50 / 150 Zosyn 3.375 gm In Dextrose 5% 100 / 150 50 / 150 in Water 50 ml @ 100 mls/hr IV Q6H [facility] Rx#:[id number] Oral 600 / 1600 800 / 1600 200 / 1600 Output: Void Amount 1000 / 2300 500 / 2300 800 / 2300 Other: Meal Lunch Percent of Meal Consumed 50% Feeding Ability Independent Urine Appearance Clear Clear Urine Color Light Vicky Bright Yellow Urine Odor Strong Exam: General: Alert, Awake, No acute Distress Eyes/N/T: EOMI, Head/Neck: neck supple, CV: RRR, No murmurs, Pulm: Clear b/l, no wheezing/rhonchi/rales Abd: soft, nontender, +BS x4 Ext: Right lower extremity with mild edema/erythema/tenderness to palpation Neuro: Alert, no focal deficits, moves all extremities, Skin: warm/dry Medical - PN: Obj Da - Labs CBC & Chem 7: 04/22/18 04:49 04/22/18 04:49 Labs: Abnormal Lab Results 04/21/18 04/21/18 04/20/18 04:27 04:27 11:37 RBC 4.41 L Lymph % (Auto) Lymph # (Auto) 1.3 L VBG Lactic Acid 2.6 H Chloride Carbon Dioxide 21 L BUN 7 L Creatinine 0.6 L Glucose 186 H Calcium 7.8 L Total Bilirubin GGT 128 H Alkaline Phosphatase 234 H Albumin 2.3 L Globulin 4.3 H Albumin/Globulin Ratio 0.5 L 04/20/18 04/20/18 11:37 11:37 RBC Lymph % (Auto) 14.9 L Lymph # (Auto) 1.0 L VBG Lactic Acid Chloride 93 L Carbon Dioxide BUN Creatinine Glucose 353 H Calcium Total Bilirubin 1.3 H GGT Alkaline Phosphatase 301 H Albumin 3.0 L Globulin 4.9 H Albumin/Globulin Ratio 0.6 L Meds: Medications Acetaminophen (Tylenol) 650 mg PO Q6HP PRN PRN Reason: PAIN/FEVER > 101 Last Admin: 04/21/18 21:39 Dose: 650 mg Documented by: Albuterol Sulfate (Ventolin) 2.5 mg NEB Q2HP PRN PRN Reason: Shortness Of Breath Aspirin (Aspirin) 81 mg PO DAILY [facility] Atorvastatin Calcium (Lipitor) 20 mg PO HS [facility] Last Admin: 04/21/18 20:41 Dose: 20 mg Documented by: Dextrose (Dextrose 50%) 0 ml IV UD PRN PRN Reason: Hypoglycemia Diagnostic Test (Pha) (Accu-Chek) 1 each FS ACHS [facility] Last Admin: 04/21/18 20:43 Dose: 1 each Documented by: Famotidine (Pepcid) 20 mg PO BID [facility] Last Admin: 04/21/18 20:41 Dose: 20 mg Documented by: Furosemide (Lasix) 20 mg PO DAILY [facility] Glucose (Insta-Glucose) 15 gm PO PRN PRN PRN Reason: Hypoglycemia Heparin Sodium (Porcine) (Heparin) 5,000 unit SQ Q12 [facility] Last Admin: 04/21/18 20:41 Dose: 5,000 unit Documented by: Hydromorphone HCl (Dilaudid) 0.5 mg IV Q2HP PRN PRN Reason: pain not responding to oxycodo Vancomycin HCl 1,500 mg/ (Sodium Chloride) 500 mls @ 333.3 mls/hr IV Q24H [facility] Last Admin: 04/21/18 09:28 Dose: 333.3 mls/hr Documented by: Piperacillin Sod/Tazobactam (Sod 3.375 gm/ Dextrose) 50 mls @ 100 mls/hr IV Q6H [facility] Last Admin: 04/21/18 23:38 Dose: 100 mls/hr Documented by: Insulin Glargine (Lantus) 85 unit SQ HS [facility] Insulin Human Lispro (Humalog) 0 unit SQ [facility]; Protocol Last Admin: 04/21/18 20:43 Dose: 8 units Documented by: Iron Carb/Multivit/[place]/Folic Acid (Multivitamin W/Minerals) 1 tab PO DAILY [facility] Losartan Potassium (Cozaar) 25 mg PO DAILY [facility] Naloxone HCl (Narcan) 0.1 mg IV Q2MIN PRN PRN Reason: Opiate Reversal Omeprazole (Prilosec) 20 mg PO ACB [facility] Ondansetron HCl (Zofran) 4 mg IV Q6HP PRN PRN Reason: Nausea And Vomiting Last Admin: 04/21/18 15:19 Dose: 4 mg Documented by: Oxycodone HCl (Roxicodone) 5 mg PO Q4HP PRN PRN Reason: pain not responding to apap Last Admin: 04/21/18 21:38 Dose: 5 mg Documented by: Potassium Chloride (Kdur) 10 meq PO QAMCC [facility] Last Admin: 04/21/18 13:16 Dose: 10 meq Documented by: Senna (Senokot) 2 tab PO HS [facility] Last Admin: 04/21/18 20:40 Dose: 2 tab Documented by: Sodium Chloride (Saline Flush) 10 ml IV Q8 [facility] Last Admin: 04/21/18 23:38 Dose: 10 ml Documented by: Medical - PN: A/P - Time Spent With Patient Total time spent is greater than 50% in coordination of care (as documented) at patient's floor/unit and/or counseling patient: - Narrative A/P Narrative: A: *Cellulitis, Right foot: Failed outpatient treatment -no Fascitis per surgical eval and review of imaging -PCT improving *Diabetes w/neuropathy: uncontrolled diabetes looking at his labs in the past sugar has been very high. on neurontin -A1c 9.8 *Hypertension/ hyperlipidemia: *Peripheral vascular disease: continue aspirin *GERD *hypokalemia: P: -cont Abx, -surgery following -start Lantus & SSI, metformin/saxagliptin held for now -cont home blood pressure, continue statin, -Monitor and replete electrolytes -ppx: heparin/pepcid full code
[2018-04-22] MEDS: PIPERACILLIN SODIUM/TAZOBACTAM 3.375 GM in DEXTROSE 5% IN WATER 50 ML IV SCH ×3 (05:58→17:59)
[2018-04-22] MEDS: 0.9 % SODIUM CHLORIDE 10 ML SYRINGE IV SCH ×3 (05:58→22:44)
[2018-04-22 06:38] LABS: Hemoglobin A1C 9.8 % HGB (4.0-6.0)
[2018-04-22 07:12] LABS: ALT/SGPT 26 U/l (0-40); Albumin 2.2 gm/dL (3.2-5.2); Albumin/Globulin Ratio 0.5 (1.0-2.3); Alkaline Phosphatase 287 U/L (39-117); Basophils # (Auto) 0 K/mcL (0.0-0.3); Basophils % (Auto) 0.4 % (0.0-2.0); Bilirubin,Direct 0.3 mg/dL (0.0-0.3); Blood Urea Nitrogen 7 mg/dl (8-23); Eosinophils # (Auto) 0.2 K/mcL (0.0-0.7); Gamma Glutamyl Transpeptidase 169 U/L (8-61); Granulocytes % (Auto) 61.1 % (38.0-78.0); Lymphocytes # (Auto) 1.4 K/mcL (1.5-4.8); Lymphocytes % (Auto) 26.6 % (15.5-49.0); Mean Cell Volume 91.6 fL (80.0-100.0); Mean Corpuscular HGB Conc 34.1 g/dL (31.0-36.0); Monocytes # (Auto) 0.5 K/mcL (0.1-0.9); Monocytes % (Auto) 8.9 % (1.0-12.0); Platelet Count 322 K/mcL (140-440); RBC 4.46 M/mcL (4.50-5.90); Red Cell Distribution Width 12.4 % (11.5-14.5); Uric Acid 2.3 mg/dL (2.5-8.0)
[2018-04-22] MEDS ORDERED: POTASSIUM CHLORIDE 20 MEQ in DEXTROSE 5% IN WATER 250 ML IV ONE (07:20)
[2018-04-22] MEDS ORDERED: POTASSIUM CHLORIDE 20 MEQ TABLET PO ONE (07:20)
[2018-04-22] MEDS: OMEPRAZOLE 20 MG CAPSULE PO SCH (07:37)
[2018-04-22] MEDS: INSULIN LISPRO 1 UNIT/0.01 ML UNIT SQ SCH ×4 (07:39→20:50)
[2018-04-22] MEDS: ACETAMINOPHEN 325 MG TABLET PO PRN ×2 (07:58→20:49)
[2018-04-22] MEDS: POTASSIUM CHLORIDE 10 MEQ TABLET PO SCH (08:23)
[2018-04-22] MEDS: ASPIRIN 81 MG TAB.CHEW PO SCH (09:23)
[2018-04-22] MEDS: LOSARTAN 25 MG TABLET PO SCH (09:23)
[2018-04-22] MEDS: MULTIVIT,THER IRON,CA,FA & MIN 1 TABLET PO SCH (09:23)
[2018-04-22] MEDS: FAMOTIDINE 20 MG TABLET PO SCH ×2 (09:23→20:48)
[2018-04-22] MEDS: FUROSEMIDE 20 MG TABLET PO SCH (09:24)
[2018-04-22] MEDS: HEPARIN 5,000 UNIT/ML VIAL SQ SCH ×2 (09:25→20:50)
[2018-04-22] MEDS: VANCOMYCIN 1,500 MG in 0.9 % SODIUM CHLORIDE 500 ML IV SCH ×3 (10:56→22:43)
--- NOTE | 2018-04-22 16:18 | General Surgery Progress Note ---
Subjective Patient reports: feels better, still having pain, pain is less, tolerating a regular diet, afebrile Narrative: Note initiated : 04/22/18 at 4:16 pm Service Date, if different from initiated Date: [] Patient: Marvin Reddy 78 y/o M admitted on 04/20/18 for right foot problem. Chief Complaint: [Patient is having slow but definite improvement. The erythema induration and edema all less than yesterday. He still has moderate pain to palpation. He is afebrile and his white count is 5.2.] Objective Temp Pulse Resp BP Pulse Ox 97.8 F 74 18 134/83 99 04/22/18 12:00 04/22/18 12:00 04/22/18 12:00 04/22/18 12:00 04/22/18 12:00 - Additional Data Intake & Output - Last 24 hours: Intake & Output 04/20/18 04/21/18 04/22/18 04/23/18 05:59 05:59 05:59 05:59 Intake Total 3650 / 3650 2300 / 2300 2300 / 2300 Output Total 2126 / 2126 2300 / 2300 1650 / 1650 Balance 1524 / 1524 0 / 0 650 / 650 Weight 196 lb 196 lb - General physical appearance well developed, well nourished, no distress - Eyes PERRL, normal ocular movement - ENT normal pinna, normal nares, normal mucosa, no hearing loss, no congestion - Neck no masses, no bruits, trachea midline, no lymphadenopathy, no venous distension - Respiratory normal expansion, normal respiratory effort, clear to auscultation - Cardiovascular Cardiovascular exam: Present: normal rate and rhythm, RRR, +S1, +S2. Absent: JVD, tachycardia - Abdomen non tender, bowel sounds (present), surgical scars (none), masses (none) - Integumentary other (cellulitis ofright lower extremity is improved.) - Neurologic normal coordination, normal sensation - Musculoskeletal other ( Gait is altered by pain from infection right lower extremity) - Psychiatric oriented to time, oriented to person, oriented to place, speech is normal, memory intact - Labs 04/22/18 04:49 04/22/18 04:49 Diabetes panel 04/22/18 04/22/18 Range/Units 04:49 04:49 Sodium 137 (133-145) mmol/L Potassium 2.9 L* (3.3-5.1) mmol/L Chloride 102 (96-108) mmol/L Carbon Dioxide 22 (22-30) mmol/L BUN 7 L (8-23) mg/dl Creatinine 0.6 L (0.7-1.2) mg/dl Glucose 80 (70-105) mg/dL Hemoglobin A1c 9.8 H (4.0-6.0) % HGB Calcium 8.0 L (8.6-10.4) mg/dl AST 31 (0-37) U/l ALT 26 (0-40) U/l Alkaline Phosphatase 287 H (39-117) U/L Total Protein 6.8 (5.9-8.4) gm/dL Albumin 2.2 L (3.2-5.2) gm/dL Triglycerides 90 (<150) mg/dl Calcium panel 04/22/18 Range/Units 04:49 Calcium 8.0 L (8.6-10.4) mg/dl Phosphorus 3.5 (2.7-4.5) mg/dL Albumin 2.2 L (3.2-5.2) gm/dL Pituitary panel 04/22/18 Range/Units 04:49 Sodium 137 (133-145) mmol/L Potassium 2.9 L* (3.3-5.1) mmol/L Chloride 102 (96-108) mmol/L Carbon Dioxide 22 (22-30) mmol/L BUN 7 L (8-23) mg/dl Creatinine 0.6 L (0.7-1.2) mg/dl Glucose 80 (70-105) mg/dL Calcium 8.0 L (8.6-10.4) mg/dl Adrenal panel 04/22/18 Range/Units 04:49 Sodium 137 (133-145) mmol/L Potassium 2.9 L* (3.3-5.1) mmol/L Chloride 102 (96-108) mmol/L Carbon Dioxide 22 (22-30) mmol/L BUN 7 L (8-23) mg/dl Creatinine 0.6 L (0.7-1.2) mg/dl Glucose 80 (70-105) mg/dL Calcium 8.0 L (8.6-10.4) mg/dl Total Bilirubin 0.9 (0.0-1.0) mg/dL AST 31 (0-37) U/l ALT 26 (0-40) U/l Alkaline Phosphatase 287 H (39-117) U/L Total Protein 6.8 (5.9-8.4) gm/dL Albumin 2.2 L (3.2-5.2) gm/dL Assessment and Plan (1) Cellulitis of lower extremity Status: Acute Assessment and plan: patient is showing excellent clinical improvement on present antibioticsand should not need any type of operative intervention. recommend continuing on present antibiotic Current Visit: Yes - Time Spent With Patient Total time spent is greater than 50% in coordination of care (as documented) at patient's floor/unit and/or counseling patient:
[2018-04-22] MEDS: SENNOSIDES 1 TABLET PO SCH (20:48)
[2018-04-22] MEDS: ATORVASTATIN 20 MG TABLET PO SCH (20:48)
[2018-04-22] MEDS: oxyCODONE HCL 5 MG TABLET PO PRN (20:49)
[2018-04-22] MEDS ORDERED: INSULIN GLARGINE, HUMAN 1 UNIT/0.01 ML SQ SCH ×3 (21:00)
[2018-04-23] MEDS: PIPERACILLIN SODIUM/TAZOBACTAM 3.375 GM in DEXTROSE 5% IN WATER 50 ML IV SCH ×3 (00:28→12:40)
[2018-04-23] MEDS: 0.9 % SODIUM CHLORIDE 10 ML SYRINGE IV SCH ×2 (05:57→14:41)
[2018-04-23 06:01] LABS: Blood Urea Nitrogen 6 mg/dl (8-23)
[2018-04-23] MEDS: INSULIN LISPRO 1 UNIT/0.01 ML UNIT SQ SCH ×2 (06:37→11:43)
[2018-04-23] MEDS ORDERED: POTASSIUM CHLORIDE 20 MEQ TABLET PO ONE (06:51)
--- NOTE | 2018-04-23 06:53 | Internal Med Progress Note ---
Medical - PN: Subj Patient information: Note initiated : 04/23/18 at 6:50 am Service Date, if different from initiated Date: [] Patient: Marvin Reddy a 78 y/o M admitted on 04/20/18 for right foot problem. Chief Complaint: [] Interval history: Mr. Reddy is a 78 year old M with history of uncontrolled diabetes presents to the emergency room for evaluation of right foot pain. The foot pain has been going on since last Thursday, started out of nowhere no trauma associated with redness and increased warmth in the right lower extremity. The patient was finding it difficult to ambulate and therefore he presented to [facility] emergency room for further evaluation I believe on 15 April. The patient was evaluated and started on antibiotics. He had received a dose of Rocephin and then put on p.o. Keflex. On subsequent visits on the it was noted that although the edema was better the cellulitis had not improved, Bactrim was added at that time. For some reason the patient presented to the hospital here today I believe for evaluation by infectious disease. The patient's condition has progressively gotten worse but it is not improved patient is unable to ambulate according to the daughters. Patient admits to having some chills but otherwise no other complaints. He denies any chest pain shortness of breath abdominal pain nausea vomiting no GI or complaints no headache changes in vision no difficulty in swallowing. He denies absolutely any trauma to the region. In the emergency room patient is afebrile temperature 97 heart rate 87 blood pressure 123/70 respirations 18 saturating 99% on room air labs show WBC count of 9.8, was 15,000 on 15 April, hemoglobin 15 platelets 263 lactic acid 2.7 sodium 133 potassium 3.5 bicarbonate 24 creatinine normal glucose 353 ABG shows pH of 7.46 PCO2 34 PO2 [address] scan done shows severe cellulitis and fasciitis no osteomyelitis The patient is being admitted to the hospital for further management 04/21 Pt seen examined, no acute overnight issues, no new complaints or concerns pain still there, but no increased erythema. labs stable 04/22 No new complaints. pyrotechnics press tender in that right ankle. No overnight events. 04/23 No issues overnight. No new complaints. States ankle feels about the same. Reports a physical therapy yesterday and stand with moderate assist started bedside with a hemiwalker for 30 seconds, unable to gait and has a mild fall risk per PT. Review of Systems: denies headache/fever/chills/nausea/vomiting/chest or abdominal pain/cough/dyspnea/diarrhea. Otherwise see above. - Constitutional Vitals: Vital Signs Temp Pulse Resp BP Pulse Ox 98.5 F 94 H 20 108/68 97 04/23/18 06:47 04/23/18 03:20 04/23/18 06:47 04/23/18 06:47 04/23/18 06:47 Period Temp Pulse Resp BP Sys/Jauregui Pulse Ox Last 24 Hr 97.1 F-98.7 F 66-94 16-20 108-138/61-83 94-99 Intake and Output 04/22/18 04/23/18 04/23/18 21:59 05:59 13:59 Intake Total 1490 / 3930 860 / 3930 500 / 500 Output Total 2575 / 5050 1750 / 5050 475 / 475 Balance -1085 / -1120 -890 / -1120 Weight 87.09 kg Intake & Output: Intake & Output 04/22/18 04/23/18 04/23/18 21:59 05:59 13:59 Intake Total 1490 / 3930 860 / 3930 500 / 500 Output Total 2575 / 5050 1750 / 5050 475 / 475 Balance -1085 / -1120 -890 / -1120 Weight 87.09 kg Intake: IV 50 / 960 50 / 960 500 / 500 Zosyn 3.375 gm In Dextrose 5% 50 / 200 50 / 200 in Water 50 ml @ 100 mls/hr IV Q6H [facility] Rx#:[id number] Vancomycin 1,500 mg In Sodium 500 / 500 Chloride 0.9% 500 ml @ 333.3 mls/hr IV Q12H [facility] Rx#: [id number] Oral 1440 / 2970 810 / 2970 Output: Void Amount 2575 / 5050 1750 / 5050 475 / 475 Other: Meal Dinner fruit cup & cheese stick Percent of Meal Consumed 75% 100% Feeding Ability Independent Independent Urine Appearance Clear Clear Urine Color Dark Yellow Dark Yellow Urine Odor Normal Normal Stool Size Large Stool Color Brown Stool Consistency Dry and Hard # Bowel Movements 1 Exam: General: Alert, Awake, No acute Distress Eyes/N/T: EOMI, Head/Neck: neck supple, CV: RRR, No murmurs, Pulm: Clear b/l, no wheezing/rhonchi/rales Abd: soft, nontender, +BS x4 Ext: Right lower extremity with mild edema/erythema/tenderness to palpation Neuro: Alert, no focal deficits, moves all extremities, Skin: warm/dry Medical - PN: Obj Da - Labs CBC & Chem 7: 04/22/18 04:49 04/23/18 04:40 Labs: Abnormal Lab Results 04/23/18 04/22/18 04/22/18 04:40 04:49 04:49 RBC Hct Lymph % (Auto) Lymph # (Auto) VBG Lactic Acid Potassium 3.1 L 2.9 L* Chloride Carbon Dioxide BUN 6 L 7 L Creatinine 0.6 L 0.6 L Glucose 68 L Hemoglobin A1c 9.8 H Uric Acid 2.3 L Calcium 8.4 L 8.0 L Total Bilirubin GGT 169 H Alkaline Phosphatase 287 H Albumin 2.2 L Globulin 4.6 H Albumin/Globulin Ratio 0.5 L 04/22/18 04/21/18 04/21/18 04:49 04:27 04:27 RBC 4.46 L 4.41 L Hct 40.9 L Lymph % (Auto) Lymph # (Auto) 1.4 L 1.3 L VBG Lactic Acid Potassium Chloride Carbon Dioxide 21 L BUN 7 L Creatinine 0.6 L Glucose 186 H Hemoglobin A1c Uric Acid Calcium 7.8 L Total Bilirubin GGT 128 H Alkaline Phosphatase 234 H Albumin 2.3 L Globulin 4.3 H Albumin/Globulin Ratio 0.5 L 04/20/18 04/20/18 04/20/18 11:37 11:37 11:37 RBC Hct Lymph % (Auto) 14.9 L Lymph # (Auto) 1.0 L VBG Lactic Acid 2.6 H Potassium Chloride 93 L Carbon Dioxide BUN Creatinine Glucose 353 H Hemoglobin A1c Uric Acid Calcium Total Bilirubin 1.3 H GGT Alkaline Phosphatase 301 H Albumin 3.0 L Globulin 4.9 H Albumin/Globulin Ratio 0.6 L Meds: Medications Acetaminophen (Tylenol) 650 mg PO Q6HP PRN PRN Reason: PAIN/FEVER > 101 Last Admin: 04/22/18 20:49 Dose: 650 mg Documented by: Albuterol Sulfate (Ventolin) 2.5 mg NEB Q2HP PRN PRN Reason: Shortness Of Breath Aspirin (Aspirin) 81 mg PO DAILY [facility] Last Admin: 04/22/18 09:23 Dose: 81 mg Documented by: Atorvastatin Calcium (Lipitor) 20 mg PO [facility] Last Admin: 04/22/18 20:48 Dose: 20 mg Documented by: Dextrose (Dextrose 50%) 0 ml IV UD PRN PRN Reason: Hypoglycemia Diagnostic Test (Pha) (Accu-Chek) 1 each FS [facility] Last Admin: 04/23/18 06:37 Dose: 1 each Documented by: Famotidine (Pepcid) 20 mg PO BID [facility] Last Admin: 04/22/18 20:48 Dose: 20 mg Documented by: Furosemide (Lasix) 20 mg PO DAILY [facility] Last Admin: 04/22/18 09:24 Dose: 20 mg Documented by: Glucose (Insta-Glucose) 15 gm PO PRN PRN PRN Reason: Hypoglycemia Heparin Sodium (Porcine) (Heparin) 5,000 unit SQ Q12 [facility] Last Admin: 04/22/18 20:50 Dose: 5,000 unit Documented by: Hydromorphone HCl (Dilaudid) 0.5 mg IV Q2HP PRN PRN Reason: pain not responding to oxycodo Piperacillin Sod/Tazobactam (Sod 3.375 gm/ Dextrose) 50 mls @ 100 mls/hr IV Q6H [facility] Last Admin: 04/23/18 05:57 Dose: 100 mls/hr Documented by: Vancomycin HCl 1,500 mg/ (Sodium Chloride) 500 mls @ 333.3 mls/hr IV Q12H [facility] Last Infusion: 04/23/18 06:27 Dose: Infused Documented by: Insulin Glargine (Lantus) 85 unit SQ [facility] Last Admin: 04/22/18 20:50 Dose: 85 units Documented by: Insulin Human Lispro (Humalog) 0 unit SQ [facility]; Protocol Last Admin: 04/23/18 06:37 Dose: Not Given Documented by: Iron Carb/Multivit/[place]/Folic Acid (Multivitamin W/Minerals) 1 tab PO DAILY [facility] Last Admin: 04/22/18 09:23 Dose: 1 tab Documented by: Losartan Potassium (Cozaar) 25 mg PO DAILY [facility] Last Admin: 01/17/19 09:23 Dose: 25 mg Documented by: Naloxone HCl (Narcan) 0.1 mg IV Q2MIN PRN PRN Reason: Opiate Reversal Omeprazole (Prilosec) 20 mg PO ACB [facility] Last Admin: 04/22/18 07:37 Dose: 20 mg Documented by: Ondansetron HCl (Zofran) 4 mg IV Q6HP PRN PRN Reason: Nausea And Vomiting Last Admin: 04/21/18 15:19 Dose: 4 mg Documented by: Oxycodone HCl (Roxicodone) 5 mg PO Q4HP PRN PRN Reason: pain not responding to apap Last Admin: 04/22/18 20:49 Dose: 5 mg Documented by: Potassium Chloride (Kdur) 10 meq PO QAMCC [facility] Last Admin: 04/22/18 08:23 Dose: 10 meq Documented by: Senna (Senokot) 2 tab PO [facility] Last Admin: 04/22/18 20:48 Dose: 2 tab Documented by: Sodium Chloride (Saline Flush) 10 ml IV Q8 [facility] Last Admin: 04/23/18 05:57 Dose: 10 ml Documented by: Medical - PN: A/P - Time Spent With Patient Total time spent is greater than 50% in coordination of care (as documented) at patient's floor/unit and/or counseling patient: - Narrative A/P Narrative: A: *Cellulitis, Right foot: Failed outpatient treatment -no Fascitis per surgical eval and review of imaging -PCT improving *Diabetes w/neuropathy: uncontrolled diabetes looking at his labs in the past s ugar has been very high. on neurontin -A1c 9.8 *Hypertension/ hyperlipidemia: *Peripheral vascular disease: continue aspirin *GERD *hypokalemia: P: -cont Abx, -surgery following -cont home Lantus & SSI, metformin/saxagliptin held for now -cont home blood pressure, continue statin, -Monitor and replete electrolytes -pt/ot -ppx: heparin/pepcid d/c planning C vs SNF full code
[2018-04-23] MEDS: OMEPRAZOLE 20 MG CAPSULE PO SCH (07:42)
[2018-04-23] MEDS: oxyCODONE HCL 5 MG TABLET PO PRN (08:49)
[2018-04-23] MEDS: POTASSIUM CHLORIDE 10 MEQ TABLET PO SCH (08:49)
[2018-04-23] MEDS: FUROSEMIDE 20 MG TABLET PO SCH (08:49)
[2018-04-23] MEDS: ASPIRIN 81 MG TAB.CHEW PO SCH (08:49)
[2018-04-23] MEDS: MULTIVIT,THER IRON,CA,FA & MIN 1 TABLET PO SCH (08:49)
[2018-04-23] MEDS: FAMOTIDINE 20 MG TABLET PO SCH (08:49)
[2018-04-23] MEDS: HEPARIN 5,000 UNIT/ML VIAL SQ SCH (08:50)
[2018-04-23] MEDS: LOSARTAN 25 MG TABLET PO SCH (08:54)
[2018-04-23] MEDS: VANCOMYCIN 1,500 MG in 0.9 % SODIUM CHLORIDE 500 ML IV SCH (10:38)
--- NOTE | 2018-04-23 10:50 | Discharge Summary ---
Medical - DS: Prov Patient information: Note initiated : 04/23/18 at 10:46 am Service Date, if different from initiated Date: [] Patient: Marvin Reddy 78 y/o M admitted on 04/20/18 for right foot problem. Chief Complaint: [] Date of admission: 04/20/18 16:51 Discharge date: 04/23/18 Primary care physician: ROSLYN Sheffield Consults: 04/20/18 16:56 Consult to Physician [CONS] Routine Comment: Consulting Provider: Emiliano Forte Reason For Exam: Physician to Consult 04/20/18 17:02 Consult to Physician [CONS] Stat Comment: fasciitis Consulting Provider: Emiliano Forte Reason For Exam: Physician to Consult Medical - DS: Meds - Discharge Medications Prescriptions: Amoxicillin/Potassium Clav [Augmentin] 875 mg PO Q12H #10 tablet Lactobacillus [Culturelle] 1 cap PO BID #60 capsule Active and Home Medications: Home Medications Aspirin [Hu Chewable Aspirin] 81 mg PO DAILY 04/20/18 [History Confirmed 04/20/18 Last Taken 04/15/18 08:00] Cephalexin [Keflex] 500 mg PO TID 04/20/18 [History Confirmed 04/20/18 Last Taken 04/19/18 21:00] Furosemide [Lasix] 20 mg PO DAILY 04/20/18 [History Confirmed 04/20/18 Last Taken 04/15/18 08:00] HYDROcodone/ACETAMINOPHEN [Xodol 10-300 Tablet] 5 mg PO 3-4XD 04/20/18 [History Confirmed 04/20/18 Last Taken 04/19/18 21:00] Insulin Glargine, Human [Lantus] 85 units SQ HS 04/20/18 [History Confirmed 04/20/18 Last Taken 04/15/18 08:00] Insulin Glargine, Human [Lantus] 85 units SQ HS 04/20/18 [History Confirmed 04/20/18 Last Taken 04/15/18 21:00] Losartan [Cozaar] 25 mg PO DAILY 04/20/18 [History Confirmed 04/20/18 Last Taken 04/15/18 08:00] Multivit-Min/Iron/Folic Acid/K [Adults Multivitamin Tablet] 1 tab PO DAILY 04/20/18 [History Confirmed 04/20/18 Last Taken 04/15/18 08:00] Naproxen [Naprosyn] 500 mg PO BIDCC 04/20/18 [History Confirmed 04/20/18 Last Taken 04/15/18 17:00] Omeprazole [PriLOSEC] 20 mg PO ACB 04/20/18 [History Confirmed 04/20/18 Last Taken 04/15/18 08:00] Potassium Chloride [Klor-Con 10] 10 meq PO DAILY 04/20/18 [History Confirmed 04/20/18 Last Taken 04/15/18 08:00] Rosuvastatin [Crestor] 10 mg PO HS 04/20/18 [History Confirmed 04/20/18 Last Taken 04/15/18 21:00] Saxagliptin HCl [Onglyza] 5 mg PO DAILY 04/20/18 [History Confirmed 04/20/18 Last Taken 04/15/18 08:00] Sulfamethoxazole/Trimethoprim [Sulfamethoxazole-Tmp Ss Tablet] 1 each PO BIDP 04/20/18 [History Confirmed 04/20/18 Last Taken 04/19/18 21:00] metFORMIN [Glucophage] 1,000 mg PO BIDCC 04/20/18 [History Confirmed 04/20/18 Last Taken 04/15/18 17:00] Medical - DS: Hosp Hospital course: Mr. Reddy is a 78 year old M Mr. Reddy is a 78 year old M with history of uncontrolled diabetes presents to the emergency room for evaluation of right foot pain. The foot pain has been going on since last Thursday, started out of nowhere no trauma associated with redness and increased warmth in the right lower extremity. The patient was fi nding it difficult to ambulate and therefore he presented to [facility] emergency room for further evaluation I believe on 15 April. The patient was evaluated and started on antibiotics. He had received a dose of Rocephin and then put on p.o. Keflex. On subsequent visits on the it was noted that although the edema was better the cellulitis had not improved, Bactrim was added at that time. For some reason the patient presented to the hospital here today I believe for evaluation by infectious disease. The patient's condition has progressively gotten worse but it is not improved patient is unable to ambulate according to the daughters. Patient admits to having some chills but otherwise no other complaints. He denies any chest pain shortness of breath abdominal pain nausea vomiting no GI or complaints no headache changes in vision no difficulty in swallowing. He denies absolutely any trauma to the region. In the emergency room patient is afebrile temperature 97 heart rate 87 blood pressure 123/70 respirations 18 saturating 99% on room air labs show WBC count of 9.8, was 15,000 on 15 April, hemoglobin 15 platelets 263 lactic acid 2.7 sodium 133 potassium 3.5 bicarbonate 24 creatinine normal glucose 353 ABG shows pH of 7.46 PCO2 34 PO2 [address] scan done shows severe cellulitis and fasciitis no osteomyelitis The patient is being admitted to the hospital for further management 04/21 Pt seen examined, no acute overnight issues, no new complaints or concerns pain still there, but no increased erythema. labs stable 04/22 No new complaints. forming machine tender in that right ankle. No overnight events. 04/23 No issues overnight. No new complaints. States ankle feels about the same. Reports a physical therapy yesterday and stand with moderate assist started bedside with a hemiwalker for 30 seconds, unable to gait and has a mild fall risk per PT. clinical improvement with antibiotics. Case management discussed needs with family, pt reviewed, and family desires home with home health. Patient stable for discharge Discharge diagnosis: Right ankle cellulitis. Secondary discharge diagnosis: Diabetes with neuropathy hypertension peripheral vascular disease - Time Spent with Patient Total time spent providing and/or coordinating discharge services: Greater than 30 minutes Medical - DS: Exam - Constitutional Vitals: Vital Signs Temp Pulse Resp BP Pulse Ox 04/23/18 06:47 98.5 F 20 108/68 97 04/23/18 03:20 97.7 F 94 H 20 114/61 97 04/22/18 23:50 98.2 F 66 20 138/77 97 04/22/18 19:00 97.8 F 83 16 126/63 95 04/22/18 16:00 98.7 F 71 18 133/74 94 04/22/18 12:00 97.8 F 74 18 134/83 99 Intake and Output 04/22/18 04/23/18 04/23/18 21:59 05:59 13:59 Intake Total 1490 / 3930 860 / 3930 550 / 550 Output Total 2575 / 5050 1750 / 5050 675 / 675 Balance -1085 / -1120 -890 / -1120 -125 / -125 Intake: IV 50 / 960 50 / 960 550 / 550 Zosyn 3.375 gm In Dextrose 5% 50 / 200 50 / 200 50 / 50 in Water 50 ml @ 100 mls/hr IV Q6H [facility] Rx#:[id number] Vancomycin 1,500 mg In Sodium 500 / 500 Chloride 0.9% 500 ml @ 333.3 mls/hr IV Q12H [facility] Rx#: [id number] Oral 1440 / 2970 810 / 2970 Output: Void Amount 2575 / 5050 1750 / 5050 675 / 675 # of times incontinent of urine 0 / 0 Other: Meal Dinner fruit cup & cheese stick Percent of Meal Consumed 75% 100% Feeding Ability Independent Independent Urine Appearance Clear Clear Clear Urine Color Dark Yellow Dark Yellow Dark Yellow Urine Odor Normal Normal Normal Stool Size Large Large Stool Color Brown Brown Stool Consistency Dry and Hard Formed # Voids 1 # Bowel Movements 1 1 # of times incontinent of 0 Bowels Weight 87.09 kg Medical - DS: Data Labs on day of discharge: Labs from last 24 hours 04/23/18 04/23/18 09:50 04:40 Sodium 138 Potassium 3.1 L Chloride 103 Carbon Dioxide 22 Anion Gap 13.0 BUN 6 L Creatinine 0.6 L GFR Calculation 98 Glucose 68 L Calcium 8.4 L Vancomycin Trough Pending Preliminary micro results at discharge 04/20/18 11:37 Blood Culture - Preliminary Blood 04/20/18 11:43 Blood Culture - Preliminary Blood Medical - DS: A/P - Patient/Caregiver Discharge Instructions Activity: increase activity as tolerated Diet: Consistent Carbohydrate - Follow up Plan Follow up with: Aden Cassidy ARNP [Primary Care Provider] - Disposition: Home Health Service Prognosis: Fair Rehab Potential: Fair
== END 2018-04-23 16:40 | disposition home health service (06) | DRG 603 ==
LOC: ED 11:11 → MEDSUR 16:51
PROVIDERS: ADMIT Internal Medicine; ATTEND Internal Medicine